=== PATIENT | male | born 1995 | race Caucasian/White ===

== ENCOUNTER → 2019-03-29 | Outpatient (CLI) | payer OTHER ==
[~2019-03-29] MED LIST: BARIUM 700 MG (E-Z-DISK) TABLET PO ONE; BARIUM for suspension 96% w/w (Vanilla Silq Medium Density) PO ONE; BARIUM for suspension 98% w/w (Vanilla Silq High Density) PO ONE
--- NOTE | 2019-03-29 10:50 | Diagnostic Imaging Report ---
PROCEDURE: US Gallbladder. TECHNIQUE: Multiple real-time grayscale images were obtained over the right upper quadrant in various projections. INDICATION: Abdominal pain. There are no prior studies available for comparison. There is no cholelithiasis or acute cholecystitis and the common bile duct is not dilated. The liver does not appear to be enlarged. There is no focal mass involving the liver. Spectral color-flow imaging of the portal vein shows the vein is patent but there is normal directional flow within the vein. The right kidney, pancreas and proximal ureter are within normal limits. IMPRESSION: 1. There is no evidence for an acute abnormality of the right upper quadrant. 2. If clinical concern regarding an underlying abnormality of the gallbladder persists, then a nuclear medicine hepatobiliary scan would be recommended for further study. Dictated by: Dictated on workstation # [id number]
--- NOTE | 2019-03-29 12:32 | Diagnostic Imaging Report ---
EXAMINATION: Barium swallow. COMPARISON: There are no prior studies available for comparison. FINDINGS: The preliminary film of the chest shows no acute abnormality. The left hilum does seem prominent, but I suspect this is due to the hilar vessels. If previous exams are available, they would be helpful for comparison. A double contrast study was performed. The patient swallowed the contrast material without difficulty. There is no aspiration or penetration. There is generally good distensibility and motility of the esophagus. There is no sign of a hiatal hernia or of gastroesophageal reflux. A cursory examination of the stomach and proximal small bowel shows that there is some irregularity of the folds along the medial aspect of the gastric fundus. There could be an element of mild gastritis in this region. This appearance has the suggestion of a Jack fundoplication procedure. Reportedly, the patient did undergo a surgical procedure in [place] previously. The remainder of the stomach is unremarkable as is the duodenum and proximal small bowel. IMPRESSION: 1. There is no evidence for a hiatal hernia or for gastroesophageal reflux. The esophagus shows good distensibility and motility. 2. The irregularity of the folds along the medial aspect of the gastric fundus is of uncertain etiology. There could be an element of mild gastritis in this region. The possibility that these findings are related to a prior Jack fundoplication should also be considered. 3. If previous exams are available, they would be helpful for comparison. Dictated on workstation # [id number]
== END ==
LOC: RAD 09:09
PROVIDERS: ATTEND Surgery
DX: R10.9 Unspecified abdominal pain (principal); R13.10 Dysphagia, unspecified; Z98.890 Other specified postprocedural states
CPT/HCPCS: 74220; 76705

== ENCOUNTER → 2019-04-14 | Outpatient (CLI) | payer OTHER ==
[~2019-04-14] MED LIST changes: -BARIUM 700 MG (E-Z-DISK) TABLET PO ONE; -BARIUM for suspension 96% w/w (Vanilla Silq Medium Density) PO ONE; -BARIUM for suspension 98% w/w (Vanilla Silq High Density) PO ONE; +CATHETER FLUSH 10 ML SYR IV PRN
--- NOTE | 2019-04-14 09:46 | Diagnostic Imaging Report ---
EXAMINATION: Gallbladder scintigraphy HISTORY: Right upper quadrant pain COMPARISON: None available. TECHNIQUE: Anterior scintigraphic imaging of the abdomen was performed after the intravenous administration of 5.0 mCi Tc-99m Choletec. FINDINGS: The upper abdomen was imaged for 60 minutes with the gamma camera. There is prompt homogeneous uptake of radiopharmaceutical by the liver. There is activity in the common duct and gallbladder by 35 minutes. Small bowel activity is seen by 45 minutes. At 60 minutes, the patient received 8 ounces of ensure. After an additional 60 minutes, the gallbladder ejection fraction was calculated to be 33% (normal is >35%) IMPRESSION: 1. Patent common and cystic bile ducts. 2. Borderline reduced gallbladder ejection fraction which may represent gallbladder dysfunction. Dictated by: Dictated on workstation # [id number]
== END ==
LOC: CARD 07:10
PROVIDERS: ATTEND Surgery
DX: R10.11 Right upper quadrant pain (principal)
CPT/HCPCS: 78227

== ENCOUNTER → 2019-05-02 | Outpatient (CLI) | payer OTHER ==
[~2019-05-02] MED LIST changes: +ACHD5005 PO; -CATHETER FLUSH 10 ML SYR IV PRN
== END | disposition home or self-care (01) ==
LOC: PREOP 06:16
PROVIDERS: ATTEND Surgery
DX: Z01.818 Encounter for other preprocedural examination (principal)

== ENCOUNTER → 2019-06-30 | Outpatient (CLI) | payer OTHER | END | disposition home or self-care (01) | LOC: PREOP 05:31 | PROVIDERS: ATTEND Surgery | DX: Z01.818 Encounter for other preprocedural examination (principal) ==

== ENCOUNTER → 2019-07-27 | Outpatient (CLI) | payer OTHER ==
--- NOTE | 2019-07-27 13:01 | Diagnostic Imaging Report ---
INDICATION: History of abdominal pain. Pain after eating with vomiting and dysphasia. Postcholecystectomy. The patient was administered a solid test meal with 1.06 mCi Tc 99M sulfur colloid used for labeling of the meal. Region of interest curves were drawn over the stomach with the percent of retained activity calculated at hourly timed intervals for a total of 4 hours. A time activity curve was generated. FINDINGS: Percent retention as follows: (percent of administered activity retained within the stomach): 1.0 hour: 24% <30% = Rapid, >90% = Delayed 2.0 hour: 6% >60% = Abnormally Delayed 3.0 hour: 1% >30% = Abnormally Delayed 4.0 hour: 1% >10% = Abnormally Delayed IMPRESSION: Normal gastric emptying at all timed intervals. Dictated by: Dictated on workstation # [id number]
== END ==
LOC: CARD 08:23
PROVIDERS: ATTEND Surgery
DX: R10.9 Unspecified abdominal pain (principal); R13.10 Dysphagia, unspecified; R11.10 Vomiting, unspecified; Z90.49 Acquired absence of other specified parts of digestive tract
CPT/HCPCS: 78264

== ENCOUNTER 2021-12-17 15:07 | Emergency (ER) | payer SELFPAY ==
[~2021-12-17] VITALS: Ht 167.7 cm; Wt 62.1 kg
[2021-12-17 15:10] VITALS: BP 133/79
--- NOTE | 2021-12-17 15:21 | ED Lower Extremity ---
General Stated Complaint: LT KNEE PAIN History of Present Illness Date Seen by Provider: Dec 17, 2021 Time Seen by Provider: 15:20 Initial Comments 26-year-old male presents with left knee pain, swelling, warmth and erythema. Reports is been going on for about 3 weeks. He does have full range of motion. Patient presents because has not been getting any better. Maybe felt little feverish. He recalls no injury, abrasion or wound to the area. 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 Allergies and Home Medications Allergies Coded Allergies: No Known Drug Allergies (Unverified , 03/29/19) Patient Home Medication List Home Medication List Reviewed: Yes Cephalexin (Cephalexin) 500 Mg Tablet, 500 MG PO QID Prescribed by: SHIELA JEFFERSON on 12/17/21 153 Doxycycline Hyclate (Doxycycline Hyclate) 100 Mg Tablet, 100 MG PO BID Prescribed by: SHIELA JEFFERSON on 12/17/21 153 Review of Systems Constitutional: see HPI; No dizziness, No malaise EENTM: no symptoms reported Respiratory: no symptoms reported Cardiovascular: no symptoms reported Gastrointestinal: no symptoms reported Genitourinary: no symptoms reported Musculoskeletal: see HPI Skin: see HPI Psychiatric/Neurological: No Symptoms Reported Past Oeglrlm-Jtqdog-Tvzdaz Hx Immunizations Up To Date PED Vaccines UTD: No Seasonal Allergies Seasonal Allergies: No Past Medical History Surgeries: Yes (hernia) Adenoidectomy, Tonsillectomy Respiratory: No Cardiac: No Neurological: No Genitourinary: No Gastrointestinal: Yes Hiatal Hernia Musculoskeletal: No Endocrine: No HEENT: No Cancer: No Psychosocial: No Integumentary: No Blood Disorders: No Physical Exam Vital Signs Capillary Refill : Height, Weight, BMI Height: '" Weight: lbs. oz. kg; 17.96 BMI Method: General Appearance: WD/WN, no apparent distress HEENT: PERRL/EOMI Neck: full range of motion, supple Cardiovascular: normal peripheral pulses, regular rate, rhythm Respiratory: lungs clear, normal breath sounds Gastrointestinal: non tender, soft Hips: bilateral hip non-tender, bilateral hip normal inspection Legs: bilateral leg non-tender, bilateral leg normal inspection Knees: left knee soft tissue tenderness, left knee swelling, left knee other (Mild erythema and swelling medial aspect) Ankles: bilateral ankle non-tender Feet: bilateral foot non-tender Neurologic/Psychiatric: candy puller II-XII nml as tested, no motor/sensory deficits, alert, normal mood/affect, oriented x 3 Skin: other (Mild erythema and warmth, mild folliculitis of left knee) Progress/Results/Core Measures Results/Orders My Orders Orders - SHIELA JEFFERSON DO Knee 3 View Left (12/17/21 15:26) Ceftriaxone (Rocephin) (12/17/21 15:30) Lidocaine 1% Inj 20 Ml (Xylocaine 1% Inj (12/17/21 15:30) Lidocaine 1% Inj 50 Ml (Xylocaine 1% Inj (12/17/21 15:45) Medications Given in ED Current Medications Medications Dose Ordered Sig/Merary Route Start Time Stop Time Status Last Admin Dose Admin Ceftriaxone Sodium 1,000 mg ONCE ONCE IM 12/17/21 15:30 12/17/21 15:31 DC 12/17/21 15:48 1,000 MG Lidocaine HCl 50 ml STK-MED ONCE .ROUTE 12/17/21 15:45 12/17/21 15:46 DC 12/17/21 15:48 50 ML Progress Progress Note : Progress Note Patient symptoms consistent with a prepatellar bursitis versus cellulitis. We will start him on Keflex and Doxy. He should follow-up with Maurice Roland next week. Sooner if symptoms continue to worsen. Patient is stable and discharged home Diagnostic Imaging Diagonstic Imaging: Xray Plain Films/CT/US/NM/MRI: knee Comments Date of Exam:12/17/21 KNEE 3 VIEW LEFT CLINICAL INDICATION: Patient with pain and swelling. EXAM: X-ray of the left knee, 3 views. COMPARISON: None. FINDINGS: There is a moderate to large amount of prepatellar soft tissue swelling and fat stranding. There is no significant knee effusion. There is no fracture or dislocation. There is no bony destructive or erosive process. IMPRESSION: 1: There is soft tissue swelling in the prepatellar region and involving the knee of unknown etiology. There is no soft tissue air or radiodense foreign object. 2: There is no acute fracture or dislocation. Departure Impression Primary Impression: Bursitis of left knee Qualified Codes: M70.42 - Prepatellar bursitis, left knee Disposition: 01 HOME, SELF-CARE Condition: Stable Departure-Patient Inst. Referrals: ETTA ROLAND NO,LOCAL PHYSICIAN (PCP) Primary Care Physician Patient Instructions: Bursitis ED, Prepatellar Bursitis Add. Discharge Instructions: Please follow-up with sales order specialist Maurice Roland next week or sooner if symptoms continue to worsen Scripts Doxycycline Hyclate (Doxycycline Hyclate) 100 Mg Tablet 100 MG PO BID, #14 TAB 0 Refills Prov: SHIELA JEFFERSON DO 12/17/21 Cephalexin (Cephalexin) 500 Mg Tablet 500 MG PO QID, #28 TAB 0 Refills Prov: SHIELA JEFFERSON DO 12/17/21 SHIELA JEFFERSON DO Dec 17, 2021 15:21
[2021-12-17] MEDS ORDERED: LIDOCAINE 1% INJ 20 ML VIAL INJ ONE (15:30)
[2021-12-17] MEDS ORDERED: cefTRIAXone 1,000 MG VIAL IM ONE (15:30)
[2021-12-17] MEDS ORDERED: DOXY100T2 PO (15:33)
[2021-12-17] MEDS ORDERED: CEPH500T PO (15:33)
[2021-12-17] MEDS ORDERED: LIDOCAINE 1% INJ 50 ML (XYLOCAINE) VIAL ONE (15:45)
--- NOTE | 2021-12-17 15:51 | Diagnostic Imaging Report ---
CLINICAL INDICATION: Patient with pain and swelling. EXAM: X-ray of the left knee, 3 views. COMPARISON: None. FINDINGS: There is a moderate to large amount of prepatellar soft tissue swelling and fat stranding. There is no significant knee effusion. There is no fracture or dislocation. There is no bony destructive or erosive process. IMPRESSION: 1: There is soft tissue swelling in the prepatellar region and involving the knee of unknown etiology. There is no soft tissue air or radiodense foreign object. 2: There is no acute fracture or dislocation. Dictated by: Dictated on workstation # [id number]
== END 2021-12-17 16:14 | disposition home or self-care (01) ==
LOC: EDUNIT# 15:07 → ER FS 15:08
DX: M70.52 Other bursitis of knee, left knee (principal); Z28.310 Unvaccinated for COVID-19
CPT/HCPCS: 73562